=== PATIENT | female | born 1965 | race Caucasian/White ===

== ENCOUNTER → 2017-12-11 13:29 | Outpatient (CLI) | payer SELFPAY ==
[2017-12-16 09:50] LABS: HPV Reflexed? NOT INDICATED
== END ==
PROVIDERS: Visit Provider Obstetrics & Gynecology
DX: Z12.4 Encounter for screening for malignant neoplasm of cervix (principal)
CPT/HCPCS: 88175; G0145

== ENCOUNTER 2019-07-16 11:34 | Emergency (ER) | payer SELFPAY ==
[2019-07-16 11:36] VITALS: BP 119/67; PULSE 127; RESP 17; TEMP 36.6; O2SAT 99; BMI 21.1
--- NOTE | 2019-07-16 11:48 | EKG12_ITS ---
Test Reason : Blood Pressure : / mmHG Vent. Rate : 119 BPM Atrial Rate : 119 BPM P-R Int : 114 ms QRS Dur : 086 ms QT Int : 322 ms P-R-T Axes : 054 032 047 degrees QTc Int : 452 ms Sinus tachycardia Nonspecific ST and T wave abnormality Abnormal ECG Confirmed by IVANIA RUBI, JOHN ([id number]), mapping editor MEG PEREZ ([id number]) on 07/18/2019 1:19:32 PM Referred By: NEO Confirmed By:JOHN REDD MD
--- NOTE | 2019-07-16 11:48 | CT_ITS ---
STUDY: CT ABDOMEN AND PELVIS WITH CONTRAST REASON FOR EXAM: Female, 53 years old. ABD PAIN, NAUSEA X 1 WK, PREV RADIATION DOSAGE (If Supplied By Facility): CTDIvol = ( 8.89 ) mGy, DLP = ( 586.08 ) mGycm TECHNIQUE: Transaxial images were obtained from the dome of the diaphragm to the symphysis pubis without oral contrast. Oral and amp; IV Gastrografin and amp; 100mL Isovue-370 was administered. Sagittal and coronal images were reconstructed. Individualized dose optimization techniques were used for this CT. COMPARISON: None. FINDINGS: Lung bases are clear. Heart size is normal. Innumerable hypointense rim enhancing hepatic masses consistent with metastatic disease. The gallbladder is unremarkable. The spleen and pancreas are unremarkable. The adrenal glands are normal. The kidneys are unremarkable. No stones or hydronephrosis. The aorta is normal in caliber. Small bowel is normal in caliber. Colon is distended from the cecum to the proximal descending colon. There is mild wall thickening and an abrupt transition. Rectosigmoid colon is decompressed. Adenopathy medial to the descending colon measures 2.1 cm. Trace free fluid in the pelvis. No free air or collection. Urinary bladder is unremarkable. Normal abdominal wall. Mild degenerative changes at L5-S1. No destructive bone lesion. CT/Abdomen/Pelvis WITH Contrast IMPRESSION: 1. Large bowel obstruction with transition in the proximal descending colon, highly suspicious for malignancy. Mild local adenopathy is suspicious for local metastasis. Appropriate referral is advised. 2. Extensive hepatic metastatic disease. 3. Trace free fluid in the pelvis. Dr. Mohamud discussed the findings with Dr. Azul at 3:31 PM at the time of dictation. N.B. : The above information has been verbally conveyed by Ciara Mohamud MD to Dr. Jazz Azul MD, MD, on 07/16/2019 15:31:29 (ET). Electronically Signed: Ciara Mohamud MD at 15:32 EDT Tel , Service support ,
--- NOTE | 2019-07-16 11:49 | ED.VISSUMM ---
- ER Visit Summary Date of Service: 07/16/19 Chief Complaint: [Abdominal pain] History of Present Illness: The patient is a 53 F [does the emergency department with abdominal pain that started about a week ago. Patient states that she has intermittent cramps that lasts a few seconds then resolve and return. Food seems to make it worse. She had decreased appetite. She has had nausea and dry heaves. She is never had pain like this before. She denies any blood in her stool or black tarry stools. She denies urinary symptoms. Currently she says she feels pretty good and just wants to eat. She denies any chest pain or shortness of breath. Prior surgical history includes C-sections.] Physical Examination: [HEENT-PERRLA, EOMI. Cranial nerves II through XII grossly intact. TMs clear. Mucous membranes moist. No adenopathy. Cardiovascular-regular rate and rhythm without murmur or ectopy Lungs-clear to auscultation, chest wall stable without crepitus or subcu emphysema Abdomen-normoactive bowel sounds, soft. Patient has tenderness palpation over the epigastric region and right upper quadrant with some guarding. There is no rebound, rigidity, or peritoneal signs. Rectal exam-patient had maroon-colored stool. No masses palpated. Hemoccult positive. Extremities-intact ?4, normal range of motion, normal pulses, atraumatic] Test Results: [CBC with differential obtained showed a white count of 8.0, hemoglobin 8.5, hematocrit 30, platelets 543. Chemistries unremarkable. Alk phos was 287, ALT 79, AST 124, lipase 68, troponin less than 0.015. Ultrasound of the gallbladder obtained showed enlarged liver with multiple masses and there is question of metastatic disease versus primary hepato-cellular carcinoma. CT scan of the abdomen pelvis with IV and p.o. contrast showed a large bowel obstruction with transition in proximal descending colon highly suspicious for malignancy. Mild local adenopathy is suspicious for local metastasis. Appropriate referral advised. Patient also had extensive hepatic with metastatic disease. Patient had trace free fluid in the pelvis.] Emergency Department Course and Treatment: [Patient case was discussed with Dr. Lauren Mansfield who is on-call for general surgery who recommended transfer to tertiary care center at [facility].] Treatment Plan: [Transfer to [facility]] Disposition: [Transfer] Impression: [Nominal pain Large bowel obstruction Colon CA Liver metastasis] This note was generated with [employer] dictation software. It may contain incorrect words, spelling, and punctuation that were not noted in review of the chart prior to signing ED Disposition - Plan for ED Patient: Referrals: Care Physician,No Primary [Primary Care Provider] -
[2019-07-16] MEDS: 0.9% Normal Saline 1,000 ML 125 ML IV (12:02)
[2019-07-16 12:19] LABS: Absolute Lymphocyte Count 0.53 X10^3/uL (0.83-4.51); Absolute Neutrophil Count 6.7 X10^3/uL (2.0-7.7); Basophil# 0.03 X10^3/uL; Basophil% 0.4 % (0-1); Eosinophil# 0.01 X10^3/uL; Eosinophils% 0.1 % (0-5); Hematocrit 30.4 % (37-47); Hemoglobin 8.5 g/dL (12.0-15.0); Lymphocyte # 0.53 X10^3/ul (4.0); Lymphocyte % 6.6 % (19-41); Mean Corpuscular Hgb 21.4 pg (27.0-32.0); Mean Corpuscular Volume 76.4 fL (81-99); Mean Platelet Vol. 10.2 fl (6.2-12.0); Monocyte# 0.61 X10^3/uL; Monocyte% 7.6 % (0-10); NRBC Flagged by Analyzer 0 % (0-5); Neutrophil # 6.72 X10^3/uL (2.7-7.7); Neutrophil % 84.3 % (47-70); POSITIVE DIFFERENTIAL YES; Platelet Count 543 K/mm3 (150-450); RBC Distribution Width CV 18.5 % (11.6-14.6); RBC Distribution Width SD 50.3 fl (35.1-43.9); Red Blood Count 3.98 M/mm3 (4.2-5.4)
[2019-07-16 12:20] LABS: Differential Indicated SCAN CRITERIA MET
[2019-07-16 12:42] LABS: ALB/GLOB Ratio 0.7 RATIO (0.9-2.4); AST(SGOT) 124 U/L (15-37); Alanine Aminotransfer ALT/SGPT 79 U/L (13-56); Albumin, Serum 2.9 g/dL (3.2-5.0); Alkaline Phosphatase 287 U/L (45-117); Anion Gap 11 (5-15); BUN 12 mg/dL (7-18); BUN/Creat Ratio 16.6 RATIO (10-20); Calcium,Total 9.1 mg/dL (8.5-10.1); Chloride 97 mmol/L (98-107); Creatinine, Serum 0.72 mg/dL (0.55-1.02); Differential Comment SCANNED; EST Glomerular Filtration Rate 90 mL/min (>60); Est Glom Filt Rate - Afr Amer 108 mL/min (>60); Estimated Creatinine Clearance 93.64 ml/min; Globulin 4.1 g/dL (2.2-4.2); Glucose 105 mg/dL (74-106); Lipase 68 U/L (73-393); Potassium 3.7 mmol/L (3.5-5.1); Sodium Level 135 mmol/L (136-145)
[2019-07-16 12:43] LABS: Anisocytosis 2+; Hypochromasia 1+; Macrocytosis 1+; Microcytosis 1+
[2019-07-16 12:50] LABS: Lactic Acid 2.2 mmol/L (0.4-1.9)
--- NOTE | 2019-07-16 12:52 | US_ITS ---
STUDY: ABDOMINAL ULTRASOUND - RIGHT UPPER QUADRANT REASON FOR VISIT: Female, 53 years old ABDOMINAL PAIN NAUSEA JUST FINISHED DRINKING CONTRAST PRIOR TO EXAM TECHNIQUE: Ultrasound evaluation of the right upper quadrant was performed with real-time and static dangelo-scale imaging. TECHNICAL QUALITY: Adequate. COMPARISON: None. FINDINGS: Liver: The liver measures 23.4 cm. There is a heterogeneous echogenicity of the liver. There is suggestion of multiple masses throughout the liver worrisome for metastatic disease or multifocal hepatocellular carcinoma. Correlation with liver protocol CT would be useful. The bile ducts are within normal limits. There is hepatic color flow. The direction of portal flow is hepatopetal. There is no demonstrated mass lesion. Gallbladder: Normal distended gallbladder. The gallbladder wall measures 2 mm. There is a negative sonographic Ospina''s sign. There is no pericholecystic fluid. There are no gallstones. Common Bile Duct (C.B.D.): The common bile duct measures 4 mm. Pancreas: Normal size of the head, body and tail of the pancreas. There is normal echogenicity of the pancreas. There is no demonstrated pancreatic mass or cyst. Right Kidney: Normal size of the right kidney. The right kidney measures 10.6 cm. Normal renal cortex. The right cortex measures 1.1 cm. There is no demonstrated renal mass or cyst. There is no right hydronephrosis. US/Gallbladder IMPRESSION: Enlarged liver with multiple masses worrisome for metastatic disease or multifocal hepatocellular carcinoma. Correlation with liver mass protocol CT is recommended. Electronically Signed: Brandon Azar MD at 15:02 EDT Tel , Service support ,
[2019-07-16 13:34] LABS: Mucous, Urine 0 SEEN /hpf (<or=2+); Red Blood Cells-Urine 0 SEEN /hpf (0-5); Squamous Epithelial Cells - UA 0 SEEN /hpf (5-10)
[2019-07-16 13:39] LABS: Color, Urine Yellow (Yellow); Glucose, Dipstick Normal (Normal); Ketone-Dipstick 15 mg/dl (Negative); Leukocyte Esterase-Dipstick 25 /ul (Negative); Nitrite-Dipstick Negative (Negative); Occult Blood-Urine Negative /ul (Negative); Protein-Dipstick Negative (Negative); Urine Bilirubin Dipstick Negative (Negative); Urine Clarity Clear (Clear); Urine Urobilinogen Normal (Normal)
[2019-07-16 13:44] LABS: Bacteria 2+ /hpf (None Seen); White Blood Cells 0-5 SEEN /hpf (0-5)
[2019-07-16 14:27] VITALS: RESP 16
[2019-07-16 16:09] LABS: Reflex Lactate? Y
[2019-07-16 17:40] VITALS: BP 129/87; PULSE 118; RESP 17; TEMP 37.1; O2SAT 98
[2019-07-16 18:11] VITALS: BP 129/87; PULSE 118; RESP 17; TEMP 37.1; O2SAT 98
== END 2019-07-16 18:55 | disposition short-term general hospital (02) ==
LOC: ED 12:28
PROVIDERS: Emergency Provider Emergency Medicine
DX: K56.609 Unspecified intestinal obstruction, unspecified as to partial versus complete obstruction (principal); C18.9 Malignant neoplasm of colon, unspecified; C78.7 Secondary malignant neoplasm of liver and intrahepatic bile duct
CPT/HCPCS: 74177; 76705; 80053; 81001; 82274; 83605; 83690; 84484; 85025; 93005; 96360; 96361; 99285; J7030; Q9967; A4216; J2405

== ENCOUNTER → 2020-04-30 10:06 | Outpatient (CLI) | payer SELFPAY ==
--- NOTE | 2020-04-30 10:10 | US_ITS ---
STUDY: ABDOMINAL ULTRASOUND - RIGHT UPPER QUADRANT REASON FOR VISIT: Female, 54 years old CIRRHOSIS OF LIVER W/ASCITES,UNSPECIFIED HEPATIC CIRRHOSIS TYPE -- MALIGNANT NEOPLASM O FSPLENIC FLEXURE, LIVER METASTASIS TECHNIQUE: Ultrasound evaluation of the right upper quadrant was performed with real-time and static dangelo-scale imaging. TECHNICAL QUALITY: Adequate. COMPARISON: None. FINDINGS: Small amount of fluid is seen in the pelvis. Paracentesis was not performed. US/Abdomen Limited IMPRESSION: Small amount of fluid is seen in the pelvis. Not enough fluid for safe paracentesis. Electronically Signed: Norris Magaña MD at 11:16 EDT , Service support ,
== END ==
PROVIDERS: Referring Provider Internal Medicine Hematology & Oncology; Visit Provider Internal Medicine Hematology & Oncology
DX: K74.60 Unspecified cirrhosis of liver (principal); R18.8 Other ascites; C18.5 Malignant neoplasm of splenic flexure; C78.7 Secondary malignant neoplasm of liver and intrahepatic bile duct
CPT/HCPCS: 76705

== ENCOUNTER → 2020-06-13 08:21 | Outpatient (CLI) | payer MEDICAID, SELFPAY ==
[2020-06-13] VITALS (8 sets, daily range): BP systolic 92–115; BP diastolic 55–68; PULSE 89–113; RESP 16; TEMP 36–36.3; O2SAT 100; BMI 21.2
== END ==
PROVIDERS: Referring Provider Internal Medicine Hematology & Oncology; Visit Provider Internal Medicine Hematology & Oncology
DX: Z51.89 Encounter for other specified aftercare (principal); D63.8 Anemia in other chronic diseases classified elsewhere
CPT/HCPCS: 36430; 86850; 86900; 86901; 86920; 86922; J7040; P9016; A4216

== ENCOUNTER → 2020-06-14 15:09 | Emergency (ER) | payer MEDICAID, SELFPAY ==
[2020-06-13 08:37] VITALS: BMI 21.2
[2020-06-14 15:10] VITALS: BP 112/68; PULSE 118; RESP 16; TEMP 36.6; O2SAT 99; BMI 21.8
[2020-06-14 15:12] VITALS: BP 112/68; PULSE 118; RESP 16; TEMP 36.6; O2SAT 99
--- NOTE | 2020-06-14 16:30 | EDS_ITS ---
HPI History of Present Illness Chief Complaint: Fever Narrative Narrative: 54-year-old woman who sees Dr. Mckinley. She has a history of colorectal cancer with metastases to her liver. She began chemo approximately 9 months ago. She developed cirrhosis 1 to 2 months ago. Patient reports that she has a problem with recurrent anemia. She got 2 units of packed red blood cells yesterday. States that she was going to get an iron infusion today and in the office they found that her temperature was 101 degrees. She reports that her temperature was checked again there and here in both of been negative. She does not feel as though she has a fever. Patient states that her last chemo was 1 week ago. She has had nausea and a poor appetite for 2 days. But she states that this seems to come and go and is not unusual following chemo. She reports that she had increased drainage from her colostomy overnight. No blood in her stools or black tarry stools. Her had similar symptoms approximately 5 days ago. She has not been on antibiotics recently. Patient denies any other possible source for fever. She does not have a sore throat or cough. No shortness of breath. No abdominal pain or vomiting. No dysuria or frequency. No headache, numbness, weakness, or myalgias. [facility] Medical History (Updated 06/14/20 @ 20:[address] Juan Wilkins MD) Colon cancer Home Medications ferrous sulfate [iron] mg 06/13/20 [History Last Taken Unknown] furosemide 06/13/20 [History Last Taken Unknown] multivitamin tab 06/13/20 [History Last Taken Unknown] omeprazole [Prilosec] 06/13/20 [History Last Taken Unknown] potassium mg PO 06/13/20 [History Last Taken Unknown] vit D3-folic [id number] tab PO 06/13/20 [History Last Taken Unknown] levofloxacin 750 mg PO DAILY #3 tab 06/14/20 [Rx Last Taken Unknown] Allergy/AdvReac Type Severity Reaction Status Date / Time No Known Allergies Allergy Verified 07/16/19 11:34 Social History Smoking Status: Never smoker ROS ROS ED Constitutional Constitutional ED: Reports fever(s); Denies chills or sweats Eyes Eyes: Denies change in vision ENT ENT ED: Denies sore throat Cardiovascular Cardiovascular: Denies chest pain Respiratory/Chest Respiratory/Chest: Denies cough, dyspnea or dyspnea on exertion Gastrointestinal Gastrointestinal: Reports diarrhea; Denies abdominal pain, melena, nausea or vomiting Genitourinary Genitourinary ED: Denies dysuria or urinary frequency Musculoskeletal Musculoskeletal: Denies myalgias Integumentary Denies rash Neurologic Neurologic: Denies headache(s), paresthesias or weakness EXAM Physical Exam Const Vital Signs: 06/14/20 15:10 06/14/20 15:12 06/14/20 17:16 Temperature 97.9 F 97.9 F Temperature Source Temporal Temporal Pulse Rate 118 H 118 H Respiratory Rate 16 16 Respiratory Effort Normal Non-Labored Respiratory Pattern Normal Blood Pressure 112/68 112/68 Blood Pressure Mean 82 82 Pulse Ox 99 99 Oxygen Delivery Method Room Air Room Air 06/14/20 17:36 06/14/20 19:01 Temperature 99.3 F H 99.1 F Temperature Source Oral Oral Pulse Rate 106 H 103 H Respiratory Rate 18 18 Respiratory Effort Respiratory Pattern Blood Pressure 108/74 102/51 L Blood Pressure Mean 85 68 Pulse Ox 98 98 Oxygen Delivery Method Room Air Room Air Positive well nourished and well developed General Appearance ED: well developed HEENT Reports normocephalic and head/scalp atraumatic Eyes PERRL Neck no lymphadenopathy, supple and no JVD General: Negative for tenderness Resp normal respiratory effort and clear to auscultation bilaterally Cardio regular rhythm and no murmurs Rate: tachycardic GI normal to inspection, nondistended, normoactive bowel sounds, non-tender and non-distended GI Narrative: No guarding, rebound, or peritoneal signs. Colostomy is draining liquid brown stool. Palpation: soft Back/Spine Back/Spine Narrative: Nontender. Extremity General Extremety ED: Negative for edema or tenderness General Extremity: Negative for edema Neuro oriented x3, CN's II-XII intact bilaterally and no sensory deficits noted Sensorium / Orientation: alert Motor Exam: strength 5/5 throughout Psych mental status grossly normal Skin no rashes or lesions noted [facility] Lab Data Labs: Laboratory Results - last 24 hr 06/14/20 06/14/20 06/14/20 17:28 17:28 17:28 WBC 4.7 RBC 3.15 L Hgb 8.8 L Hct 29.1 L MCV 92.4 MCH 27.9 MCHC 30.2 L RDW Std Deviation 65.8 H RDW Coeff of Efrain 22.8 H Plt Count 158 MPV 10.6 Immature Gran % (Auto) 0.400 Neut % (Auto) 80.4 H Lymph % (Auto) 11.6 L Mayes % (Auto) 6.6 Eos % (Auto) 0.6 Baso % (Auto) 0.4 Absolute Neuts (auto) 3.8 Absolute Lymphs (auto) 0.55 L Nucleated RBC % 1.1 Differential Comment SEE COMMENT Platelet Estimate ADEQUATE RBC Morphology N CHROM Polychromasia RARE Hypochromasia RARE Anisocytosis RARE Macrocytosis RARE PT 14.9 INR 1.2 APTT 29.0 Sodium 133 L Potassium 3.7 Chloride 101 Carbon Dioxide 24.0 Anion Gap 8 BUN 8 Creatinine 0.67 Estim Creat Clear Calc 101.48 Est GFR (MDRD) Af Amer 119 Est GFR (MDRD) Non-Af 98 BUN/Creatinine Ratio 12.0 Glucose 99 Lactic Acid Calcium 8.8 Phosphorus 4.1 Magnesium 1.9 Total Bilirubin 1.50 H AST 50 H ALT 22 Alkaline Phosphatase 248 H Total Protein 5.7 L Albumin 2.2 L Globulin 3.5 Albumin/Globulin Ratio 0.6 L Urine Color Urine Clarity Urine pH Ur Specific Nunda Urine Protein Urine Glucose (UA) Urine Ketones Urine Occult Blood Urine Nitrite Urine Bilirubin Urine Urobilinogen Ur Leukocyte Esterase Urine RBC Urine WBC Ur Squamous Epith Cells Urine Bacteria Hyaline Casts Urine Mucus 06/14/20 06/14/20 17:28 19:05 WBC RBC Hgb Hct MCV MCH MCHC RDW Std Deviation RDW Coeff of Efrain Plt Count MPV Immature Gran % (Auto) Neut % (Auto) Lymph % (Auto) Mayes % (Auto) Eos % (Auto) Baso % (Auto) Absolute Neuts (auto) Absolute Lymphs (auto) Nucleated RBC % Differential Comment Platelet Estimate RBC Morphology Polychromasia Hypochromasia Anisocytosis Macrocytosis PT INR APTT Sodium Potassium Chloride Carbon Dioxide Anion Gap BUN Creatinine Estim Creat Clear Calc Est GFR (MDRD) Af Amer Est GFR (MDRD) Non-Af BUN/Creatinine Ratio Glucose Lactic Acid 1.7 Calcium Phosphorus Magnesium Total Bilirubin AST ALT Alkaline Phosphatase Total Protein Albumin Globulin Albumin/Globulin Ratio Urine Color Yellow Urine Clarity Sl. Cloudy Urine pH 5.0 Ur Specific Nunda 1.020 Urine Protein 15 H Urine Glucose (UA) Normal Urine Ketones 5 H Urine Occult Blood 10 H Urine Nitrite Negative Urine Bilirubin 1 H Urine Urobilinogen 1 H Ur Leukocyte Esterase 500 H Urine RBC 0-5 SEEN Urine WBC 10-25 SEEN Ur Squamous Epith Cells 0 SEEN Urine Bacteria 0 SEEN Hyaline Casts 0-5 SEEN Urine Mucus 4+ Microbiology Final Results - last 24 hrs 06/14/20 17:35 C. difficile DNA Amplification - Final Stool Radiography Chest X-Ray - ED: 1 View, Read by ED Physician and Read by Radiologist Diagnostic Testing: Radiology Impression Chest X-Ray 06/14/20 19:02 IMPRESSION: Patchy bibasilar airspace disease suspicious for pneumonia. at 1955 Reported and signed by: Aubrey Christopher MD Electronically Signed: Aubrey Christopher MD at 19:55 EDT Tel , Service support , I read the patient's chest x-ray. Is a very poor inspiration. Her only 7 ribs showing. Radiologist read as an infiltrate. I do not appreciate an infiltrate. Patient denies having any cough. Treatment and Re-Evaluation Comments:: Emergency department course: Patient had an IV placed. She was given liter normal saline. She refused pain or nausea medications. She is resting comfortably. Treatment plan: The patient is not neutropenic. She will be discharged with 3 days of Levaquin for her urine while the culture is obtained. She is instructed to follow-up Dr. Mckinley in 3 days for another exam. Insert return Disposition: To home in improved and stable condition. Discharge Plan Triage Chief Complaint: Fever ED Provider: Juan Wilkins Dx/Rx/DC Orders Clinical Impression: UTI (urinary tract infection), Colon cancer metastasized to liver Instructions: ED Bladder Infection, Female (Adult) Prescriptions: New levofloxacin 750 mg tablet 750 mg PO DAILY Qty: 3 RF: 0 No Action multivitamin Tablet RF: 0 omeprazole [Prilosec] 10 mg Capsule,Delayed Release(Dr/Ec) RF: 0 ferrous sulfate [iron] 325 mg (65 mg iron) Tablet RF: 0 potassium 20 mg Tablet,Chewable PO RF: 0 vit D3-folic [id number] 2,000-800-0.32 unit-mcg-mg Tablet PO RF: 0 furosemide RF: 0 Primary Care Provider: Care Physician,No Primary Referrals: Gareth Mckinley DO [STAFF PHYSICIAN] - 3-5 Days Care Physician,No Primary [Primary Care Provider] -
[2020-06-14] MEDS: 0.9% Normal Saline 1,000 ML 1000 ML IV (17:29)
[2020-06-14 17:36] VITALS: BP 108/74; PULSE 106; RESP 18; TEMP 37.4; O2SAT 98
[2020-06-14 17:40] LABS: Absolute Lymphocyte Count 0.55 X10^3/uL (0.83-4.51); Absolute Neutrophil Count 3.8 X10^3/uL (2.0-7.7); Basophil# 0.02 X10^3/uL; Basophil% 0.4 % (0-1); Eosinophil# 0.03 X10^3/uL; Eosinophils% 0.6 % (0-5); Hematocrit 29.1 % (37-47); Hemoglobin 8.8 g/dL (12.0-15.0); Lymphocyte # 0.55 X10^3/ul (0.83-4.51); Lymphocyte % 11.6 % (19-41); Mean Corp Hgb Conc 30.2 g/dL (32-36); Mean Corpuscular Hgb 27.9 pg (27.0-32.0); Mean Corpuscular Volume 92.4 fL (81-99); Mean Platelet Vol. 10.6 fl (6.2-12.0); Monocyte# 0.31 X10^3/uL; Monocyte% 6.6 % (0-10); NRBC Flagged by Analyzer 1.1 % (0-5); Neutrophil % 80.4 % (47-70); POSITIVE DIFFERENTIAL YES; POSITIVE MORPHOLOGY YES; Platelet Count 158 K/mm3 (150-450); RBC Distribution Width CV 22.8 % (11.6-14.6); RBC Distribution Width SD 65.8 fl (35.1-43.9); Red Blood Count 3.15 M/mm3 (4.2-5.4); White Blood Count 4.7 K/mm3 (4.4-11.0)
[2020-06-14 17:49] LABS: International Normalized Ratio 1.2; Prothrombin Time (Protime)PT. 14.9 SECONDS (11.7-14.9)
[2020-06-14 17:51] LABS: Differential Indicated SCAN CRITERIA MET
[2020-06-14 18:11] LABS: Lactic Acid 1.7 mmol/L (0.4-1.9)
[2020-06-14 18:16] LABS: ALB/GLOB Ratio 0.6 RATIO (0.9-2.4); AST(SGOT) 50 U/L (15-37); Alanine Aminotransfer ALT/SGPT 22 U/L (13-56); Albumin, Serum 2.2 g/dL (3.2-5.0); Alkaline Phosphatase 248 U/L (45-117); Anion Gap 8 (5-15); BUN 8 mg/dL (7-18); Calcium,Total 8.8 mg/dL (8.5-10.1); Chloride 101 mmol/L (98-107); Creatinine, Serum 0.67 mg/dL (0.55-1.02); EST Glomerular Filtration Rate 98 mL/min (>60); Est Glom Filt Rate - Afr Amer 119 mL/min (>60); Estimated Creatinine Clearance 101.48 ml/min; Globulin 3.5 g/dL (2.2-4.2); Glucose 99 mg/dL (74-106); Magnesium 1.9 mg/dL (1.6-2.6); Phosphorus 4.1 mg/dL (2.5-4.9); Potassium 3.7 mmol/L (3.5-5.1); Protein, Total 5.7 g/dL (6.4-8.2); Sodium Level 133 mmol/L (136-145)
[2020-06-14 18:25] LABS: Anisocytosis RARE; Macrocytosis RARE; Platelet Estimate ADEQUATE (ADEQ); Red Cell Morphology N CHROM NORMAL (NORM C&C)
[2020-06-14 18:26] LABS: Hypochromasia RARE; Polychromasia RARE
[2020-06-14 19:01] VITALS: BP 102/51; PULSE 103; RESP 18; TEMP 37.3; O2SAT 98
--- NOTE | 2020-06-14 19:02 | RAD_ITS ---
HISTORY: Fever EXAMINATION/TECHNIQUE: XR Chest 1 View: Portable upright AP chest x-ray COMPARISON: None FINDINGS: LINES/DEVICES: Left sided Mediport catheter, tip in the right atrium. LUNGS: Low lung volumes with patchy bibasilar airspace opacities, no consolidation, edema or effusion. MEDIASTINUM AND CARDIOVASCULAR STRUCTURES: Cardiac silhouette not enlarged. Central airways and mediastinal contour are unremarkable. BONES AND SOFT TISSUES: No acute bony abnormalities. RAD/Chest 1 View (Portable) IMPRESSION: Patchy bibasilar airspace disease suspicious for pneumonia. at 1955 Reported and signed by: Aubrey Christopher MD Electronically Signed: Aubrey Christopher MD at 19:55 EDT Tel , Service support ,
[2020-06-14 20:02] LABS: Bacteria 0 SEEN /hpf (None Seen); Squamous Epithelial Cells - UA 0 SEEN /hpf (5-10)
[2020-06-14 20:05] LABS: Color, Urine Yellow (Yellow); Glucose, Dipstick Normal (Normal); Ketone-Dipstick 5 mg/dl (Negative); Leukocyte Esterase-Dipstick 500 /ul (Negative); Nitrite-Dipstick Negative (Negative); Occult Blood-Urine 10 /ul (Negative); Protein-Dipstick 15 mg/dl (Negative); Urine Clarity Sl. Cloudy (Clear); Urine Urobilinogen 1 mg/dl (Normal)
[2020-06-14 20:07] LABS: Urine Bilirubin Dipstick 1 mg/dL (Negative)
[2020-06-14 20:20] LABS: Mucous, Urine 4+ /hpf (<or=2+)
[2020-06-14 20:23] LABS: White Blood Cells 10-25 SEEN /hpf (0-5)
[2020-06-14 20:24] LABS: Red Blood Cells-Urine 0-5 SEEN /hpf (0-5)
[2020-06-14 20:27] LABS: Hyaline Cast 0-5 SEEN /lpf (0-5)
[2020-06-14] MEDS: levoFLOXacin 750 MG Tablet PO (21:02)
[2020-06-14 21:03] VITALS: BP 102/66; PULSE 105; RESP 18; O2SAT 99
== END | disposition home or self-care (01) ==
PROVIDERS: Emergency Provider Emergency Medicine
DX: N39.0 Urinary tract infection, site not specified (principal); C18.9 Malignant neoplasm of colon, unspecified; C78.7 Secondary malignant neoplasm of liver and intrahepatic bile duct; K74.60 Unspecified cirrhosis of liver; D64.9 Anemia, unspecified; Z93.3 Colostomy status; Z79.899 Other long term (current) drug therapy
CPT/HCPCS: 36591; 71045; 80053; 81001; 83605; 83735; 84100; 85025; 85610; 85730; 87040; 87086; 87088; 87493; 87506; 96360; 96361; 99285; J7030

== ENCOUNTER 2020-07-13 22:32 | Emergency (ER) | payer MEDICAID, SELFPAY ==
[2020-06-14 15:10] VITALS: BMI 21.8
[2020-07-13 22:33] VITALS: BP 68/48; PULSE 107; RESP 18; TEMP 36.1; O2SAT 100; BMI 17.7
--- NOTE | 2020-07-13 23:04 | EX.ED.DYSGE1 ---
HPI History of Present Illness Chief Complaint: GI Bleed Informant: patient, spouse/S.O. and family Narrative Narrative: 54-year-old female with history of metastatic colon cancer to the liver presents with bleeding from her stoma. She is reportedly on hospice. They tell me she was just admitted to the [facility] in [facility] for 14 days where she got blood transfusions. They states her blood pressure typically has been running 90 systolic but she has normally been tachycardic. He states that tonight around 7:00 the stoma started bleeding and it has not stopped. He states that they talk to a surgeon who recommended going to emergency and having a stitch and cautery done. [facility] Medical History Colon cancer Home Medications ferrous sulfate [iron] mg 06/13/20 [History Last Taken Unknown] furosemide 06/13/20 [History Last Taken Unknown] multivitamin tab 06/13/20 [History Last Taken Unknown] omeprazole [Prilosec] 06/13/20 [History Last Taken Unknown] potassium mg PO 06/13/20 [History Last Taken Unknown] vit D3-folic [id number] tab PO 06/13/20 [History Last Taken Unknown] levofloxacin 750 mg PO DAILY #3 tab 06/14/20 [Rx Last Taken Unknown] Allergy/AdvReac Type Severity Reaction Status Date / Time No Known Allergies Allergy Verified 07/16/19 11:34 Social History (Updated 07/13/20 @ 23:[address] Arsalan Solano DO) Smoking Status: Never smoker substance use type: does not use ROS ROS ED Constitutional Constitutional ED: Denies chills or weight loss Eyes Eyes: Denies change in vision or diplopia ENT ENT ED: Denies ear pain, rhinorrhea or sore throat Cardiovascular Cardiovascular: Denies chest pain, orthopnea, palpitations or racing heartbeat Respiratory/Chest Respiratory/Chest: Denies cough, dyspnea or orthopnea Gastrointestinal Gastrointestinal: Reports other Details: Bleeding from stoma ; Denies abdominal pain, diarrhea, nausea or vomiting Genitourinary Genitourinary ED: Denies dysuria, hematuria or urinary frequency Musculoskeletal Musculoskeletal: Denies arthralgias or myalgias Integumentary Denies abscess or rash Neurologic Neurologic: Denies headache(s) or weakness Psychiatric Psychiatric: Denies anxiety, depression, suicidal ideation or suicidal thoughts Endocrine Endocrinology: Denies polydipsia, polyphagia or polyuria Allergic/Immunologic Allergic/Immunologic ED: Denies mouth swelling, tongue swelling or urticaria EXAM Physical Exam Const Vital Signs: 07/13/20 22:33 07/14/20 00:04 Temperature 97 F L Temperature Source Temporal Pulse Rate 107 H 104 H Respiratory Rate 18 18 Blood Pressure 68/48 L Blood Pressure Mean 54 Pulse Ox 100 100 Oxygen Delivery Method Nasal Cannula Oxygen Flow Rate (L/min) 4 Positive well developed and cachectic General Appearance ED: well developed and cachectic Nutritional Appearance: cachectic HEENT Reports normocephalic, head/scalp atraumatic and moist mucous membranes Eyes PERRL and EOMs intact bilaterally Neck no lymphadenopathy, supple and no JVD Resp normal respiratory effort and clear to auscultation bilaterally Cardio regular rate, regular rhythm and no murmurs GI non-tender GI Narrative: Located in the 12 o'clock position on the skin border with the stoma is a medium sized vein that is actively bleeding. Palpation: soft Back/Spine no CVA tenderness and normal ROM Extremity normal to inspection General Extremety ED: Negative for edema General Extremity: Negative for edema Neuro oriented x3 and CN's II-XII intact bilaterally Sensorium / Orientation: alert Motor Exam: strength 5/5 throughout Psych mental status grossly normal Mood & Affect: Negative for depressed or tearful Skin no rashes or lesions noted and no wounds MDM MDM MDM Narrative Medical decision making narrative: Direct pressure was held but no relief from the bleeding. Local lidocaine with epinephrine was instilled into the area. A horizontal mattress stitch was placed and tied. This essentially ligated the vessel. No further bleeding was seen. Basic blood work was obtained. White count 32,000. Hemoglobin 7.7. Potassium 7.3. She has a metabolic acidosis. She has acute kidney injury. She has developed ST depression on the monitor. We gave her some IV fluids as well as Dilaudid. Is my opinion that the patient is entering multisystem organ failure. I do not think that placing her in the ICU is going to change the inevitable outcome. I believe the patient is actively dying and would be best served in hospice. I spoke with her and her and they are in agreement. I did attempt to contact her daughter Nakia but have not received a phone call back yet. Hospice will be up to talk with them. Lab Data Labs: Laboratory Results - last 24 hr 07/13/20 07/13/20 07/13/20 23:30 23:30 23:30 WBC 32.3 H* RBC 2.47 L Hgb 7.7 L Hct 24.0 L MCV 97.2 MCH 31.2 MCHC 32.1 RDW Std Deviation 73.0 H RDW Coeff of Efrain 21.8 H Plt Count 598 H MPV 10.3 Immature Gran % (Auto) 5.000 H Neut % (Auto) 85.6 H Lymph % (Auto) 5.4 L Bee % (Auto) 3.6 Eos % (Auto) 0.1 Baso % (Auto) 0.3 Absolute Neuts (auto) 27.7 H Absolute Lymphs (auto) 1.76 Nucleated RBC % 2.0 Diff Path Review May foll PT 17.7 H INR 1.5 APTT 38.5 H Sodium 125 L Potassium 7.2 H* Chloride 89 L Carbon Dioxide 12.0 L Anion Gap 24 H BUN 51 H Creatinine 2.10 H Estim Creat Clear Calc 26.62 Est GFR (MDRD) Af Amer 32 L Est GFR (MDRD) Non-Af 26 L BUN/Creatinine Ratio 24.3 H Glucose 106 Calcium 9.1 Total Bilirubin 4.20 H AST 571 H ALT 120 H Alkaline Phosphatase 654 H Total Protein 5.2 L Albumin 2.2 L Globulin 3.0 Albumin/Globulin Ratio 0.7 L Blood Type Antibody Screen 07/13/20 23:30 WBC RBC Hgb Hct MCV MCH MCHC RDW Std Deviation RDW Coeff of Efrain Plt Count MPV Immature Gran % (Auto) Neut % (Auto) Lymph % (Auto) Bee % (Auto) Eos % (Auto) Baso % (Auto) Absolute Neuts (auto) Absolute Lymphs (auto) Nucleated RBC % Diff Path Review PT INR APTT Sodium Potassium Chloride Carbon Dioxide Anion Gap BUN Creatinine Estim Creat Clear Calc Est GFR (MDRD) Af Amer Est GFR (MDRD) Non-Af BUN/Creatinine Ratio Glucose Calcium Total Bilirubin AST ALT Alkaline Phosphatase Total Protein Albumin Globulin Albumin/Globulin Ratio Blood Type A NEGATIVE Antibody Screen NEGATIVE Critical Care Time Critical Care Time: Yes Critical care time (excluding procedures): 30-74 minutes (35 min), Including time spent:, Discussing w/Patient &/or Family/Curtain Stretcher, Arranging Admission or Transfer and Performing Direct Patient Care at Bedside Discharge Plan Triage Chief Complaint: GI Bleed ED Provider: Arsalan Solano Dx/Rx/DC Orders Clinical Impression: Multisystem organ failure, Bleeding from colostomy stoma, Metastatic colon cancer to liver, Acute blood loss anemia Prescriptions: No Action multivitamin Tablet RF: 0 omeprazole [Prilosec] 10 mg Capsule,Delayed Release(Dr/Ec) RF: 0 ferrous sulfate [iron] 325 mg (65 mg iron) Tablet RF: 0 potassium 20 mg Tablet,Chewable PO RF: 0 vit D3-folic [id number] 2,000-800-0.32 unit-mcg-mg Tablet PO RF: 0 furosemide RF: 0 levofloxacin 750 mg tablet 750 mg PO DAILY Qty: 3 RF: 0 Primary Care Provider: Care Physician,No Primary Referrals: Care Physician,No Primary [Primary Care Provider] -
[2020-07-13] MEDS: HYDROmorphone 0.5 MG/0.5 ML SYRINGE IV (23:39)
[2020-07-13] MEDS: Lidocaine 1% /Epi 1:100 (20ml) 20 ML Vial INFILT (23:39)
[2020-07-13] MEDS: 0.9% Normal Saline 1,000 ML 1000 ML IV (23:39)
[2020-07-13 23:48] LABS: Absolute Lymphocyte Count 1.76 X10^3/uL (0.83-4.51); Absolute Neutrophil Count 27.7 X10^3/uL (2.0-7.7); Basophil# 0.09 X10^3/uL; Basophil% 0.3 % (0-1); Eosinophil# 0.03 X10^3/uL; Eosinophils% 0.1 % (0-5); Hemoglobin 7.7 g/dL (12.0-15.0); Lymphocyte # 1.76 X10^3/ul (0.83-4.51); Lymphocyte % 5.4 % (19-41); Mean Corp Hgb Conc 32.1 g/dL (32-36); Mean Corpuscular Hgb 31.2 pg (27.0-32.0); Mean Corpuscular Volume 97.2 fL (81-99); Mean Platelet Vol. 10.3 fl (6.2-12.0); Monocyte# 1.15 X10^3/uL; Monocyte% 3.6 % (0-10); Neutrophil # 27.67 X10^3/uL (2.7-7.7); POSITIVE COUNT YES; POSITIVE DIFFERENTIAL YES; POSITIVE MORPHOLOGY YES; Platelet Count 598 K/mm3 (150-450); RBC Distribution Width CV 21.8 % (11.6-14.6); Red Blood Count 2.47 M/mm3 (4.2-5.4); White Blood Count 32.3 K/mm3 (4.4-11.0)
[2020-07-14] LABS: Differential Indicated SCAN CRITERIA MET
[2020-07-14 00:02] LABS: Neutrophil % 85.6 % (47-70)
[2020-07-14 00:04] VITALS: PULSE 104; RESP 18; O2SAT 100
[2020-07-14 00:13] LABS: ALB/GLOB Ratio 0.7 RATIO (0.9-2.4); AST(SGOT) 571 U/L (15-37); Alanine Aminotransfer ALT/SGPT 120 U/L (13-56); Albumin, Serum 2.2 g/dL (3.2-5.0); Alkaline Phosphatase 654 U/L (45-117); Anion Gap 24 (5-15); BUN 51 mg/dL (7-18); BUN/Creat Ratio 24.3 RATIO (10-20); Calcium,Total 9.1 mg/dL (8.5-10.1); Chloride 89 mmol/L (98-107); EST Glomerular Filtration Rate 26 mL/min (>60); Est Glom Filt Rate - Afr Amer 32 mL/min (>60); Estimated Creatinine Clearance 26.62 ml/min; Glucose 106 mg/dL (74-106); Potassium 7.2 mmol/L (3.5-5.1); Protein, Total 5.2 g/dL (6.4-8.2); Sodium Level 125 mmol/L (136-145)
[2020-07-14 00:21] LABS: International Normalized Ratio 1.5; Prothrombin Time (Protime)PT. 17.7 SECONDS (11.7-14.9)
[2020-07-14 00:22] LABS: Partial Thromboplast Time 38.5 Seconds (24.1-36.2)
[2020-07-14] MEDS: HYDROmorphone 0.5 MG/0.5 ML SYRINGE IV (00:41)
[2020-07-14 02:02] VITALS: BP 84/64; PULSE 107; RESP 19; O2SAT 100
[2020-07-14] MEDS: LORazepam 2 MG/ML Syringe 1 MG IV (02:02)
[2020-07-14 03:07] VITALS: PULSE 104; RESP 16; O2SAT 96
[2020-07-16 13:28] LABS: Pathologist Review Reviewed
== END 2020-07-14 03:09 | disposition hospice, inpatient (51) ==
PROVIDERS: Emergency Provider Emergency Medicine
DX: K94.01 Colostomy hemorrhage (principal); C18.9 Malignant neoplasm of colon, unspecified; C78.7 Secondary malignant neoplasm of liver and intrahepatic bile duct; E87.2 Acidosis; N17.9 Acute kidney failure, unspecified; D62 Acute posthemorrhagic anemia; R64 Cachexia; Z79.899 Other long term (current) drug therapy; Z85.038 Personal history of other malignant neoplasm of large intestine
CPT/HCPCS: 36591; 80053; 85025; 85610; 85730; 86850; 86900; 86901; 96361; 96374; 96375; 99285; J7030; A4216